=== PATIENT | female | born 1995 | race Caucasian/White ===

== ENCOUNTER 2024-10-14 05:55 | Day surgery (SDC) | payer OTHER, SELFPAY ==
[2024-10-13 07:34] VITALS: BMI 35.2
[2024-10-13 09:00] LABS: HCG,Qualitative Serum Negative
[2024-10-13 09:03] LABS: Alanine Aminotransferase 28 U/L (10-49); Albumin, Serum 4.3 gm/dL (3.5-5.0); Albumin/Globulin Ratio 1.9 (1.2-2.2); Alkaline Phosphatase 55 U/L (46-116); Anion Gap 7 (7-16); Aspartate Amino Transferase 26 U/L (0-34); BUN/Creatinine Ratio 7 Ratio (12-20); Bilirubin,Total 0.6 mg/dL (0.3-1.2); Blood Urea Nitrogen 6 mg/dL (9-23); Calcium 9.4 mg/dL (8.3-10.6); Calcium (Corrected) 9.4 mg/dL (8.5-10.1); Carbon Dioxide 26.9 mMol/L (20.0-31.0); Chloride 107 mMol/L (98-107); Creatinine (Component) 0.9 mg/dL (0.6-1.3); Estimated Creatinine Clearance 96.6 mL/min (>60); Globulin 2.3 gm/dL (2.3-3.5); Glucose 96 mg/dL (74-106); Osmolality,Calculated 278 (275-295); Potassium 4.0 mMol/L (3.4-5.1); Sodium 141 mMol/L (136-145); Total Protein 6.6 gm/dL (5.7-8.2); eGFR > 60 See Note
[2024-10-13 09:04] LABS: Basophils # (Auto) 0.0 Thou/mm3 (0.0-0.2); Basophils % (Auto) 0 % (0-2.5); Eosinophils # (Auto) 0.3 Thou/mm3 (0.0-0.5); Eosinophils % (Auto) 4 % (0-10); Hematocrit 38.3 % (36.0-46.0); Hemoglobin 13.4 g/dL (12.0-16.0); Immature Granulocytes Auto 0.01 Thou/mm3 (0.00-0.00); Lymphocytes # (Auto) 2.3 Thou/mm3 (1.0-4.8); Lymphocytes % (Auto) 32 % (10-50); Mean Corpuscular HGB Conc 35.0 g/dl (31.0-37.0); Mean Corpuscular Hemoglobin 30.5 pg (25.0-35.0); Mean Corpuscular Volume 87 fL (80-100); Monocytes # (Auto) 0.5 Thou/mm3 (0.0-0.8); Monocytes % (Auto) 7 % (0-12); Neutrophils # (Auto) 4.1 Thou/mm3 (1.8-7.7); Neutrophils % (Auto) 56 % (37-80); Nucleated Red Blood Cell # 0.00 Thou/mm3 (0.00-0.00); Nucleated Red Blood Cell % 0 /100 WBC (0); Platelet Count 309 Thou/mm3 (140-440); RDW Standard Deviation 40.7 fL (36.4-46.3); Red Blood Count 4.40 Miln/mm3 (4.00-5.20); White Blood Count 7.3 Thou/mm3 (3.6-11.0)
[2024-10-13 09:38] LABS: INR 1.0 (0.9-1.3); Partial Thromboplastin Time 26.2 Seconds (22.0-36.0); Prothrombin Time 10.8 Seconds (9.0-12.2)
[2024-10-14] VITALS (8 sets, daily range): BP systolic 112–131; BP diastolic 74–91; PULSE 70–99; RESP 12–19; TEMP 36.2–36.6; O2SAT 98–100; BMI 34.9
[2024-10-14] MEDS: RINGERS LACTATED 1000 ML 1,000 ML 20 ML IV (06:35)
--- NOTE | 2024-10-14 09:45 | SUR.PHASEI ---
0945 patient arrived to recovery resting comfortably in [facility], on oxygen 8L via oxy mask with an oral airway in place, breathing unlabored, vital signs stable, dressing intact to abdomen; dissolvable sutures, gauze, medipore tape, no bleeding noted, report received from Dr. Yu and Lesia RODRIGUEZ
[2024-10-14] MEDS: MORPHINE SULF INJ 10 MG/ML VIAL 3 MG IVP ×2 (10:11→10:21)
--- NOTE | 2024-10-14 10:24 | PD.SUROPNT ---
Date of Procedure 10/14/24 Pre Op Diagnosis Symptomatic cholelithiasis Post Op Diagnosis Same Procedure Laparoscopic cholecystectomy Findings Patient was found to have a noninflamed gallbladder with small stones Procedure Description After endotracheal anesthesia was given the patient was placed in supine position and the abdomen was prepped with chloroprep solution and draped in a sterile manner. After time out was performed I injected a few cc of of half percent Marcaine with epinephrine below the umbilicus and I made an incision for about 3 cm in length. The fascia was cleaned and Veress needle was inserted to create a pneumoperitoneum up to 15 mmHg. Then introduced a 12 mm trocar and a 10 mm camera through the fascia and I inspected the intra-abdominal organs as well as the gallbladder and the liver. Another 5 mm trocar was inserted in the epigastric region under direct vision after injecting some local anesthesia. At this time the patient was kept in reverse Trendelenburg position with the left lateral tilt. The third 5 mm trocar was inserted over the mid axillary line under direct vision and a Vladislav and Olga grasper was used to hold the fundus of the gallbladder. The retraction was carried out by the healthcare administrative assistant moving the fundus of the gallbladder towards the right shoulder of the patient to create enough traction. I placed a another 5 mm trocar in the midaxillary line just lateral to the rectus muscle under direct vision. I used a fenestrated grasper to retract the neck of the gallbladder laterally towards the patient's right hip. The Calot's triangle was exposed and I achieved the critical view of safety as follows: I dissected out the fatty tissue from the hepatocystic triangle and cleared this area. I also dissected inferior and posterior to the gallbladder to identify the cystic duct and the gallbladder wall. Then superiorly I dissected along the cystic plate up to lower one third third of the gallbladder to lift the gallbladder from the liver. At this time I confirmed that only 2 structures entering the gallbladder were cystic artery and the cystic duct. The common duct was seen distally but no dissection was carried out around the duct. I did not see any need for operative cholangiogram in this patient. The cystic duct was clipped doubly and then divided and cystic artery was similarly dealt with. Then the gallbladder was removed from the liver bed using Harmonic john to control the small blood vessels as the dissection proceeded. Then the gallbladder was from the liver bed completely and delivered through the umbilical port using an Endopouch. The liver bed was coagulated with cautery to obtain satisfactory hemostasis. The trocars were pulled out from the abdominal cavity and the fascia at the umbilical incision was closed with interrupted 0 Ethibond. Subcutaneous tissues was closed with 3-0 chromic and injected a few cc of half percent Marcaine with epinephrine and the skin was closed with interrupted 4-0 nylon stitches at all the trocar sites. Dressing was applied with 2 x 2 and Tegaderm. Patient tolerated the procedure well and returned to recovery room in stable condition. Anesthesia GETA Pathology / specimen Other (Gallbladder and the stones) IVF Infused 600 Estimated Blood Loss 30 Surgeon Mina Anand MD Surgical Staff Operation Date: 10/14/24 08:00 Case Staff Anesthesiologist: Hilario Yu RN First Assistant: Lester Parker
--- NOTE | 2024-10-14 10:53 | SUR.PHASEII ---
1053 Patient meets discharge criteria from recovery, awake and alert, breathing unlabored, vital signs stable, per patient her pain is tolerable, dressing intact; no bleeding noted, drinking fluids, denies nausea, assisted with dressing into her clothing by her , discharge instructions given to patient and patients , signed discharge instructions. Patient given all his belongings prior to discharge, transported via wheelchair and left in a private vehicle
== END 2024-10-14 10:53 | disposition home or self-care (01) ==
PROVIDERS: PCP Nurse Practitioner Family; Referring Provider Surgery; Visit Provider Surgery
PROC: 0FT44ZZ Resection of Gallbladder, Percutaneous Endoscopic Approach (ICD-10-PCS; CPT 47562; principal; 2024-10-14 08:00)
DX: K80.10 Calculus of gallbladder with chronic cholecystitis without obstruction (principal); E66.01 Morbid (severe) obesity due to excess calories; K21.9 Gastro-esophageal reflux disease without esophagitis; Z68.34 Body mass index [BMI] 34.0-34.9, adult
CPT/HCPCS: 47562; 36415; 80053; 84703; 85025; 85610; 85730; A4217; A4649; J0131; J2250; J2270; J2704; J3010; J3490; J7120